=== PATIENT | male | born 1940 | race African-American/Black ===

== ENCOUNTER 2025-01-27 11:38 | Inpatient (IN) | payer BC, MEDICAID ==
[~2025-01-27] VITALS: Ht 170.2 cm; Wt 81.6 kg
[2025-01-27 12:57] LABS: BASOPHILS % 0.2 % (0.0-2.0); EOSINOPHILS % 0.1 % (0.0-5.0); HEMATOCRIT. 42.3 % (42.0-52.0); HEMOGLOBIN. 13.8 g/dL (14.0-18.0); LYMPHOCYTES % 7.2 % (20.0-50.0); MEAN PLATELET VOLUME 10.1 fl (7.4-10.4); MONOCYTES % 8.7 % (2.0-8.0); NEUTROPHILS % 83.8 % (40.0-76.0); PLATELET 127 x1000/uL (130-400); RED BLOOD CELL COUNT 4.50 mill/uL (4.7-6.1); RED CELL DISTRIBUTION WIDTH 14.8 % (11.6-14.6)
[2025-01-27 13:05] LABS: CREATININE 1.6 mg/dL (0.6-1.3); UREA NITROGEN BLOOD 40 mg/dL (9-23)
[2025-01-27 13:07] LABS: ASPARTATE AMINOTRANSFERASE 66 IU/L (<34); BILIRUBIN DIRECT 0.4 mg/dL (<=3.0); BILIRUBIN TOTAL 1.2 mg/dL (0.1-1.0); PROTEIN TOTAL 7.5 g/dL (6.0-8.3)
[2025-01-27 13:21] LABS: TROPONIN I HIGH SENSITIVITY 7028 ng/L (3.0-53)
[2025-01-27] MEDS: ACETAMINOPHEN 1000MG/100ML 100 ML IV ONE (14:06)
[2025-01-27] MEDS ORDERED: SODIUM CHLORIDE 0.45% 1,000 ML IV SCH (14:45)
[2025-01-27] MEDS: ASPIRIN 81MG TABLET PO SCH (15:08)
[2025-01-27] MEDS: ENOXAPARIN 80MG/0.8ML SYR SUBCUT SCH (15:08)
[2025-01-27] MEDS ORDERED: ACETAMINOPHEN 325MG TABLET PO PRN (15:30)
[2025-01-27] MEDS ORDERED: MAGNESIUM/ALUMINUM HYDROXIDE/SIMETHICONE 30ML UDC PO PRN (15:30)
[2025-01-27] MEDS ORDERED: CLONIDINE 0.1MG TABLET PO PRN (15:30)
[2025-01-27] MEDS ORDERED: ONDANSETRON HCL 4MG/2ML INJ IV PRN (15:30)
[2025-01-27 16:00] VITALS: BP 97/65; PULSE 92; RESP 20; TEMP 36.8; TEMP 36.8072; O2SAT 94
[2025-01-27] MEDS ORDERED: ALBUMIN HUMAN 25GM/100ML (25%) IV STA (17:26)
[2025-01-27 18:00] VITALS: BP 110/70; PULSE 79; RESP 25; O2SAT 96
[2025-01-27] MEDS: ALBUMIN HUMAN 25GM/100ML (25%) IV SCH (18:11)
[2025-01-27] MEDS: DEXTROSE 5% WATER 1,000 ML IV SCH (19:04)
[2025-01-27 20:00] VITALS: BP 108/63; PULSE 91; RESP 20; TEMP 36.7; O2SAT 98
[2025-01-27] MEDS ORDERED: IPRATROPIUM/ALBUTEROL 0.5-3(2.5)MG/3ML NEB HHN PRN (21:00)
[2025-01-27] MEDS: ATORVASTATIN CALCIUM 40MG TABLET PO SCH (21:00)
[2025-01-27 22:00] VITALS: BP 115/73; PULSE 97; RESP 29; O2SAT 95
[2025-01-27] MEDS: VANCOMYCIN 1.5GM PMX (XELLIA) 300 ML IV SCH (23:13)
[2025-01-27] MEDS: PIPERACILLIN/TAZO 3.375G/50ML 50 ML IV SCH (23:13)
[2025-01-28] VITALS (16 sets, daily range): BP systolic 99–123; BP diastolic 64–79; PULSE 89–122; RESP 19–33; TEMP 36.3–38.1; O2SAT 95–98
[2025-01-28 00:39] LABS: TROPONIN I HIGH SENSITIVITY 7160 ng/L (3.0-53)
[2025-01-28] MEDS: IPRATROPIUM/ALBUTEROL 0.5-3(2.5)MG/3ML NEB HHN SCH (02:49)
[2025-01-28 06:32] LABS: CREATININE 1.6 mg/dL (0.6-1.3)
[2025-01-28 06:33] LABS: HEMATOCRIT. 34.8 % (42.0-52.0); HEMOGLOBIN. 11.4 g/dL (14.0-18.0); MEAN PLATELET VOLUME 9.9 fl (7.4-10.4); PLATELET 105 x1000/uL (130-400); RED BLOOD CELL COUNT 3.75 mill/uL (4.7-6.1); RED CELL DISTRIBUTION WIDTH 14.6 % (11.6-14.6); UREA NITROGEN BLOOD 45.0 mg/dL (9-23)
[2025-01-28 07:45] LABS: INR 1.3
[2025-01-28 07:49] LABS: TROPONIN I HIGH SENSITIVITY 8157.0 ng/L (3.0-53)
[2025-01-28] MEDS: ENOXAPARIN 80MG/0.8ML SYR SUBCUT SCH (11:02)
[2025-01-28] MEDS: DEXTROSE 5% WATER 1,000 ML IV SCH (11:04)
[2025-01-28 15:45] LABS: GLUCOSE URINE NEGATIVE (NEGATIVE); KETONES URINE 1+ (NEGATIVE); LEUKOCYTE ESTERASE URINE NEGATIVE (NEGATIVE); NITRITE URINE POSITIVE (NEGATIVE); OCCULT BLOOD URINE NEGATIVE (NEGATIVE); PH URINE 5.5 (4.5-8.0); PROTEIN URINE 1+ (NEGATIVE); SPECIFIC GRAVITY URINE 1.038 (1.005-1.030); UROBILINOGEN URINE 1.0 E.U./dL (0.2-1.0)
[2025-01-28] MEDS ORDERED: DEXT 5% WATER + KCL 40MEQ/L 1,000 ML IV ONE (15:45)
[2025-01-28] MEDS ORDERED: NACL IV SCH (15:45)
[2025-01-28] MEDS ORDERED: DEXT IV SCH (15:45)
[2025-01-28] MEDS ORDERED: POTASSIUM CHLORIDE IV SCH (15:45)
[2025-01-28 15:54] LABS: *AMPHETAMINES SCREEN URINE NEGATIVE (NEGATIVE); *BARBITURATES SCREEN URINE NEGATIVE (NEGATIVE); *BENZODIAZEPINES SCREEN URINE NEGATIVE (NEGATIVE); *COCAINE SCREEN URINE NEGATIVE (NEGATIVE); CREATININE URINE RANDOM 196.6 mg/dL
[2025-01-28 15:55] LABS: CANNABINOID URINE SCREEN NEGATIVE (NEGATIVE); ECSTASY MDMA SCREEN URINE NEGATIVE (NEGATIVE); METHADONE URINE SCREEN NEGATIVE (NEGATIVE); OPIATES URINE SCREEN NEGATIVE (NEGATIVE); OSMOLALITY URINE 1101 mOsm/kg (500-850); PHENCYCLIDINE URINE SCREEN NEGATIVE (NEGATIVE); SODIUM URINE RANDOM < 10 mEq/L
[2025-01-28 16:05] LABS: UREA NITROGEN URINE RANDOM 1830 mg/dL
[2025-01-28 16:20] LABS: CLARITY URINE HAZY (CLEAR); COLOR URINE YELLOW (YELLOW)
[2025-01-28 16:21] LABS: WBC URINE 0-2 /hpf (0-2)
[2025-01-28 16:22] LABS: AMORPHOUS SEDIMENT URINE 1+ /lpf; BACTERIA URINE 1+; MUCUS URINE 1+ /lpf (NONE/TRACE); RBC URINE NONE SEEN /hpf (0-2); SQUAMOUS EPITHELIAL CELL URINE 1+ /lpf (RARE/1+)
[2025-01-28] MEDS ORDERED: LISI20TA31 PO (17:38)
[2025-01-28] MEDS ORDERED: AMLO-905 PO (17:38)
[2025-01-28] MEDS ORDERED: HYDR12.54 PO (17:38)
[2025-01-28] MEDS ORDERED: GABA-1180 MT (17:38)
[2025-01-28] MEDS ORDERED: LOVA20TA2 PO (17:38)
[2025-01-28] MEDS: WATER IV ONE (17:45)
[2025-01-28] MEDS: DEXTROSE 5% IV ONE (17:45)
[2025-01-28] MEDS: POTASSIUM CHLORIDE IV ONE (17:45)
[2025-01-28] MEDS ORDERED: HYDROCODONE/ACETAMINOPHEN 5/325MG TABLET PO PRN (21:00)
[2025-01-28] MEDS: VANCOMYCIN 750MG PREMIX 150 ML IV SCH (22:02)
[2025-01-28] MEDS: HYDROCODONE/ACETAMINOPHEN 10/325MG TABLET PO PRN (22:03)
[2025-01-29] VITALS (14 sets, daily range): BP systolic 87–110; BP diastolic 50–80; PULSE 90–103; RESP 15–32; TEMP 36.3–37.5; O2SAT 94–98
[2025-01-29 06:57] LABS: UREA NITROGEN BLOOD 56 mg/dL (9-23)
[2025-01-29 06:59] LABS: HEMATOCRIT. 30.3 % (42.0-52.0); HEMOGLOBIN. 10.0 g/dL (14.0-18.0); MEAN PLATELET VOLUME 10.6 fl (7.4-10.4); PHOSPHORUS 3.5 mg/dL (2.5-4.9); PLATELET 100 x1000/uL (130-400); RED BLOOD CELL COUNT 3.27 mill/uL (4.7-6.1); RED CELL DISTRIBUTION WIDTH 15.1 % (11.6-14.6)
[2025-01-29 07:00] LABS: CREATININE 2.6 mg/dL (0.6-1.3)
[2025-01-29] MEDS: POLYETHYLENE GLYCOL 3350 (17GM) 1 DOSE PACK PO SCH (10:08)
[2025-01-29 10:49] LABS: CREATININE 2.7 mg/dL (0.6-1.3); UREA NITROGEN BLOOD 56.0 mg/dL (9-23)
[2025-01-29] MEDS ORDERED: GABA-529 MT (10:57)
[2025-01-29] MEDS ORDERED: PRED5DRO22 LEFTEYE (10:57)
[2025-01-29] MEDS: SODIUM CHLORIDE 0.9% 1,000 ML IV SCH (13:02)
[2025-01-29] MEDS: SODIUM CHLORIDE 0.9% 1,000 ML IV ONE (14:04)
[2025-01-29] MEDS: MIDODRINE HCL 5MG TABLET PO PRN (15:37)
[2025-01-29 15:44] LABS: LYMPHOCYTES % MANUAL 10.0 % (20.0-50.0); MONOCYTES % MANUAL 3.0 % (2.0-8.0); NEUTROPHILS % MANUAL 87.0 % (45.0-75.0); PLATELET ESTIMATE SLIGHTLY DECREASED
[2025-01-29 16:42] LABS: PLATELET 104 x1000/uL (130-400); RED BLOOD CELL COUNT 3.34 mill/uL (4.7-6.1); RED CELL DISTRIBUTION WIDTH 15.0 % (11.6-14.6)
[2025-01-29 16:54] LABS: LYMPHOCYTES % MANUAL 9.0 % (20.0-50.0); MONOCYTES % MANUAL 7.0 % (2.0-8.0); NEUTROPHILS % MANUAL 84.0 % (45.0-75.0); NUCLEATED RED BLOOD CELLS 3 /100 WBC; PLATELET ESTIMATE SLIGHTLY DECREASED
[2025-01-29] MEDS: ALBUMIN HUMAN 25GM/100ML (25%) IV SCH (17:37)
[2025-01-29 21:10] LABS: HEMATOCRIT. 29.0 % (42.0-52.0); HEMOGLOBIN. 9.5 g/dL (14.0-18.0); MEAN PLATELET VOLUME 10.9 fl (7.4-10.4); PLATELET 105 x1000/uL (130-400); RED BLOOD CELL COUNT 3.12 mill/uL (4.7-6.1); RED CELL DISTRIBUTION WIDTH 15.3 % (11.6-14.6)
[2025-01-29 21:20] LABS: CREATININE 3.3 mg/dL (0.6-1.3)
[2025-01-29 21:21] LABS: UREA NITROGEN BLOOD 67 mg/dL (9-23)
[2025-01-29 21:22] LABS: ASPARTATE AMINOTRANSFERASE 31 IU/L (<34)
[2025-01-29 21:23] LABS: BILIRUBIN TOTAL 0.9 mg/dL (0.1-1.0); PHOSPHORUS 4.3 mg/dL (2.5-4.9); PROTEIN TOTAL 5.9 g/dL (6.0-8.3)
[2025-01-29 21:25] LABS: TROPONIN I HIGH SENSITIVITY 6728 ng/L (3.0-53)
[2025-01-29 21:39] LABS: EOSINOPHILS % MANUAL 3.0 % (0.0-5.0); LYMPHOCYTES % MANUAL 23.0 % (20.0-50.0); MONOCYTES % MANUAL 14.0 % (2.0-8.0); NEUTROPHILS % MANUAL 60.0 % (45.0-75.0); NUCLEATED RED BLOOD CELLS 1 /100 WBC; PLATELET ESTIMATE DECREASED
[2025-01-29] MEDS: ACETAMINOPHEN 500MG TABLET PO SCH (23:46)
[2025-01-30] VITALS (16 sets, daily range): BP systolic 81–113; BP diastolic 57–83; PULSE 72–94; RESP 16–33; TEMP 36.2–37.3; O2SAT 93–100
[2025-01-30 06:49] LABS: HEMATOCRIT. 30.8 % (42.0-52.0); HEMOGLOBIN. 10.0 g/dL (14.0-18.0); MEAN PLATELET VOLUME 10.4 fl (7.4-10.4); PLATELET 107 x1000/uL (130-400); RED BLOOD CELL COUNT 3.20 mill/uL (4.7-6.1); RED CELL DISTRIBUTION WIDTH 15.9 % (11.6-14.6)
[2025-01-30 07:42] LABS: CREATININE 3.4 mg/dL (0.6-1.3)
[2025-01-30 07:43] LABS: UREA NITROGEN BLOOD 77 mg/dL (9-23)
[2025-01-30 07:45] LABS: PHOSPHORUS 4.4 mg/dL (2.5-4.9)
[2025-01-30] MEDS: ENOXAPARIN 80MG/0.8ML SYR SUBCUT SCH (09:00)
[2025-01-30] MEDS: SODIUM BICARBONATE 8.4% 50MEQ/50ML SYR IV NR (10:19)
[2025-01-30] MEDS: ENOXAPARIN 30MG/0.3ML SYR SUBCUT SCH (12:00)
[2025-01-30 15:36] LABS: BAND% 7.0 % (1.0-6.0); EOSINOPHILS % MANUAL 1.0 % (0.0-5.0); LYMPHOCYTES % MANUAL 17.0 % (20.0-50.0); MONOCYTES % MANUAL 8.0 % (2.0-8.0); NEUTROPHILS % MANUAL 67.0 % (45.0-75.0)
[2025-01-30 15:37] LABS: PLATELET ESTIMATE DECREASED
[2025-01-30 16:38] LABS: BG BASE EXCESS -3.5 mmol/L (-2.0-3.0); BG CARBOXYHEMOGLOBIN 0.8 % (0.5-1.5); BG DEOXYHEMOGLOBIN 3.5 % (0.0-5.0); BG FRACTION INSPIRED OXYGEN 21; BG HCO3 ACT 19.1 mmol/L (21.0-28.0); BG METHEMOGLOBIN 0.2 % (0.5-1.5); BG OXYGEN SATURATION 96.5 % (94.0-98.0); BG OXYHEMOGLOBIN 95.5 % (94.0-98.0); BG PCO2 26.6 mmHg (35.0-48.0); BG PH 7.475 (7.350-7.450); BG PO2 85.2 mmHg (83.0-108.0); BG SAMPLE SITE RIGHT RADIAL; BG TOTAL HEMOGLOBIN 9.6 g/dL (13.5-17.5); BG VENT MODE ROOM AIR
[2025-01-30] MEDS: CLOPIDOGREL 75MG TABLET PO SCH (17:41)
[2025-01-30] MEDS: FUROSEMIDE 40MG/4ML VIAL IVP NR ×2 (17:41→21:34)
[2025-01-30] MEDS: PIPERACILLIN/TAZO 3.375G/50ML IV SCH (21:34)
[2025-01-30 22:00] LABS: UREA NITROGEN BLOOD 87.0 mg/dL (9-23)
[2025-01-30 22:01] LABS: CREATININE 4.6 mg/dL (0.6-1.3)
[2025-01-31] VITALS (41 sets, daily range): BP systolic 79–117; BP diastolic 56–77; PULSE 81–99; RESP 18–39; TEMP 36.8–37.6; O2SAT 88–100
[2025-01-31 07:37] LABS: PLATELET 144 x1000/uL (130-400); RED BLOOD CELL COUNT 3.36 mill/uL (4.7-6.1); RED CELL DISTRIBUTION WIDTH 15.5 % (11.6-14.6)
[2025-01-31 08:00] LABS: UREA NITROGEN BLOOD 91 mg/dL (9-23)
[2025-01-31] MEDS: DIAZEPAM 5 MG/ML 2ML SYR IV NR (08:00)
[2025-01-31 08:02] LABS: PHOSPHORUS 7.0 mg/dL (2.5-4.9)
[2025-01-31 08:27] LABS: CREATININE 5.0 mg/dL (0.6-1.3)
[2025-01-31] MEDS ORDERED: NALOXONE HCL 0.4MG/ML VIAL IV PRN (12:30)
[2025-01-31] MEDS: HYDROCODONE/ACETAMINOPHEN 5/325MG TABLET PO PRN (13:18)
[2025-01-31] MEDS: MIDODRINE HCL 5MG TABLET PO PRN (14:00)
[2025-01-31] MEDS ORDERED: SODIUM CHLORIDE 0.9% 1,000 ML IV SCH (14:45)
[2025-01-31] MEDS: MORPHINE SULFATE 2 MG/ML INJ (NOT FOR IM USE) IV PRN (14:53)
[2025-01-31] MEDS ORDERED: CEFEPIME 1GM IN DEXT 5% 50ML IV SCH (16:45)
[2025-01-31] MEDS: FLUDROCORTISONE ACETATE 0.1MG TABLET PO SCH (18:33)
[2025-01-31] MEDS: CEFEPIME 1GM PREMIX 50ML IV SCH (18:33)
[2025-01-31] MEDS ORDERED: AMIODARONE 360MG/200ML 200 ML IV SCH (22:15)
[2025-01-31] MEDS: AMIODARONE 150MG/100ML D5W 100 ML IV SCH (22:32)
[2025-01-31] MEDS: AMIODARONE 360MG/200ML D5W PREMIX IV SCH (22:34)
[2025-02-01] VITALS (39 sets, daily range): BP systolic 76–145; BP diastolic 46–72; PULSE 70–100; RESP 16–33; TEMP 36.3–37.7; O2SAT 94–100
[2025-02-01 08:20] LABS: BASOPHILS % 0.3 % (0.0-2.0); EOSINOPHILS % 1.6 % (0.0-5.0); HEMATOCRIT. 28.5 % (42.0-52.0); HEMOGLOBIN. 9.5 g/dL (14.0-18.0); LYMPHOCYTES % 7.1 % (20.0-50.0); MEAN PLATELET VOLUME 10.2 fl (7.4-10.4); MONOCYTES % 10.6 % (2.0-8.0); NEUTROPHILS % 80.4 % (40.0-76.0); PLATELET 153 x1000/uL (130-400); RED BLOOD CELL COUNT 3.16 mill/uL (4.7-6.1); RED CELL DISTRIBUTION WIDTH 15.4 % (11.6-14.6)
[2025-02-01 08:40] LABS: ASPARTATE AMINOTRANSFERASE 54 IU/L (<34)
[2025-02-01 08:41] LABS: BILIRUBIN TOTAL 0.5 mg/dL (0.1-1.0); PHOSPHORUS 7.5 mg/dL (2.5-4.9)
[2025-02-01 08:42] LABS: PROTEIN TOTAL 6.3 g/dL (6.0-8.3)
[2025-02-01 09:35] LABS: CREATININE 6.1 mg/dL (0.6-1.3); UREA NITROGEN BLOOD 101 mg/dL (9-23)
[2025-02-01] MEDS: MIDODRINE HCL 5MG TABLET PO SCH (12:19)
[2025-02-01] MEDS: DOXYCYCLINE HYCLATE 100MG CAPSULE PO SCH (16:20)
[2025-02-01] MEDS: NOREPINEPHRINE 8MG/250ML PMX 250 ML IV PRN (18:15)
[2025-02-01] MEDS: ACETAMINOPHEN 325MG TABLET PO PRN (20:50)
[2025-02-01] MEDS: METOCLOPRAMIDE HCL 10MG/2ML VIAL IV PRN (23:18)
[2025-02-02] VITALS (102 sets, daily range): BP systolic 61–140; BP diastolic 14–101; PULSE 55–156; RESP 17–66; TEMP 36.50292–37.4; O2SAT 91–100
[2025-02-02 05:43] LABS: ASPARTATE AMINOTRANSFERASE 77 IU/L (<34); BILIRUBIN TOTAL 0.5 mg/dL (0.1-1.0); PROTEIN TOTAL 5.6 g/dL (6.0-8.3)
[2025-02-02 05:53] LABS: CREATININE 7.1 mg/dL (0.6-1.3); UREA NITROGEN BLOOD 123 mg/dL (9-23)
[2025-02-02 05:54] LABS: PHOSPHORUS 9.4 mg/dL (2.5-4.9); TROPONIN I HIGH SENSITIVITY 2830 ng/L (3.0-53)
[2025-02-02] MEDS: SODIUM CHLORIDE 0.9% (SEPSIS BOLUS) IV ONE (06:15)
[2025-02-02 06:23] LABS: BASOPHILS % 0.2 % (0.0-2.0); EOSINOPHILS % 2.3 % (0.0-5.0); HEMATOCRIT. 27.7 % (42.0-52.0); HEMOGLOBIN. 9.1 g/dL (14.0-18.0); LYMPHOCYTES % 8.5 % (20.0-50.0); MEAN PLATELET VOLUME 10.5 fl (7.4-10.4); MONOCYTES % 8.8 % (2.0-8.0); NEUTROPHILS % 80.2 % (40.0-76.0); PLATELET 188 x1000/uL (130-400); RED BLOOD CELL COUNT 3.02 mill/uL (4.7-6.1); RED CELL DISTRIBUTION WIDTH 15.6 % (11.6-14.6)
[2025-02-02] MEDS ORDERED: LIDOCAINE HCL 1% 10 MG/ML 10ML VIAL ONE (09:22)
[2025-02-02] MEDS ORDERED: AMIODARONE HCL 900 MG in DEXT 5% WATER 482 ML IV SCH (12:30)
[2025-02-02] MEDS ORDERED: AMIODARONE HCL 150 MG in DEXT 5% WATER 100 ML IV ONE (12:30)
[2025-02-02 12:43] LABS: HEPATITIS A AB IGM NEGATIVE (Negative)
[2025-02-02 12:44] LABS: HEPATITIS B CORE AB IGM NEGATIVE (Negative); HEPATITIS C AB NON REACTIVE (Neg) (Negative)
[2025-02-02] MEDS: AMIODARONE 150MG/100ML PREMIX IV NR (12:58)
[2025-02-02 14:06] LABS: HEMATOCRIT. 26.3 % (42.0-52.0); HEMOGLOBIN. 8.4 g/dL (14.0-18.0); MEAN PLATELET VOLUME 10.5 fl (7.4-10.4); PLATELET 179 x1000/uL (130-400); RED BLOOD CELL COUNT 2.82 mill/uL (4.7-6.1); RED CELL DISTRIBUTION WIDTH 15.8 % (11.6-14.6)
[2025-02-02 14:23] LABS: UREA NITROGEN BLOOD 76 mg/dL (9-23)
[2025-02-02 14:26] LABS: CREATININE 4.8 mg/dL (0.6-1.3)
[2025-02-02 14:27] LABS: BAND% 11.0 % (1.0-6.0); LYMPHOCYTES % MANUAL 18.0 % (20.0-50.0); MONOCYTES % MANUAL 4.0 % (2.0-8.0); NEUTROPHILS % MANUAL 67.0 % (45.0-75.0)
[2025-02-02 14:28] LABS: PHOSPHORUS 8.5 mg/dL (2.5-4.9); PLATELET ESTIMATE NORMAL
[2025-02-02] MEDS: PROPOFOL 10MG/ML 100ML 100 ML IV PRN (14:58)
[2025-02-02] MEDS: PHENYLEPHRINE 50MG/250ML PMX 250 ML IV PRN (14:59)
[2025-02-02] MEDS: AMIODARONE 360MG/200ML D5W PREMIX IV SCH (15:02)
[2025-02-02] MEDS: CALCIUM ACETATE 667MG CAPSULE PO SCH ×2 (15:08→17:20)
[2025-02-02 15:48] LABS: BG BASE EXCESS -5.8 mmol/L (-2.0-3.0); BG CARBOXYHEMOGLOBIN 0.3 % (0.5-1.5); BG DEOXYHEMOGLOBIN 0.4 % (0.0-5.0); BG FRACTION INSPIRED OXYGEN 100; BG HCO3 ACT 18.1 mmol/L (21.0-28.0); BG METHEMOGLOBIN 0.1 % (0.5-1.5); BG OXYGEN SATURATION 99.6 % (94.0-98.0); BG OXYHEMOGLOBIN 99.2 % (94.0-98.0); BG PCO2 30.4 mmHg (35.0-48.0); BG PEEP (cmH2O) 5.0 cmH2O; BG PH 7.393 (7.350-7.450); BG PO2 287.7 mmHg (83.0-108.0); BG SAMPLE SITE RIGHT BRACHIAL; BG TIDAL VOLUME(mL) 400.0 mL; BG TOTAL HEMOGLOBIN 10.9 g/dL (13.5-17.5); BG VENT MODE VENT - AC; BG VENT RATE 22.0 set
[2025-02-02] MEDS: GABAPENTIN 100MG CAPSULE PO SCH (20:54)
[2025-02-03] VITALS (40 sets, daily range): BP systolic 58–167; BP diastolic 15–141; PULSE 50–109; RESP 21–55; TEMP 37.3; O2SAT 68–100
[2025-02-03 02:43] LABS: BG BASE EXCESS -6.4 mmol/L (-2.0-3.0); BG CARBOXYHEMOGLOBIN 0.8 % (0.5-1.5); BG DEOXYHEMOGLOBIN 21.4 % (0.0-5.0); BG FRACTION INSPIRED OXYGEN 40; BG HCO3 ACT 16.7 mmol/L (21.0-28.0); BG METHEMOGLOBIN 0.0 % (0.5-1.5); BG OXYGEN SATURATION 78.4 % (94.0-98.0); BG OXYHEMOGLOBIN 77.8 % (94.0-98.0); BG PCO2 25.6 mmHg (35.0-48.0); BG PEEP (cmH2O) 5.0 cmH2O; BG PH 7.433 (7.350-7.450); BG PO2 46.0 mmHg (83.0-108.0); BG SAMPLE SITE RIGHT RADIAL; BG TIDAL VOLUME(mL) 400.0 mL; BG TOTAL HEMOGLOBIN 9.6 g/dL (13.5-17.5); BG VENT MODE VENT - AC; BG VENT RATE 22.0 set
[2025-02-03] MEDS: IPRATROPIUM/ALBUTEROL 0.5-3(2.5)MG/3ML NEB HHN SCH ×2 (02:54→03:38)
[2025-02-03] MEDS ORDERED: FENTANYL CITRATE/PF 2,500 MCG in SODIUM CHLORIDE 0.9% 200 ML IV PRN (03:00)
[2025-02-03] MEDS: DOPAMINE 400MG/250ML PREMIX 250 ML IV PRN (03:12)
[2025-02-03 05:23] LABS: BASOPHILS % 0.1 % (0.0-2.0); EOSINOPHILS % 0.1 % (0.0-5.0); HEMATOCRIT. 28.9 % (42.0-52.0); HEMOGLOBIN. 9.3 g/dL (14.0-18.0); LYMPHOCYTES % 9.2 % (20.0-50.0); MEAN PLATELET VOLUME 10.2 fl (7.4-10.4); MONOCYTES % 8.9 % (2.0-8.0); NEUTROPHILS % 81.7 % (40.0-76.0); PLATELET 247 x1000/uL (130-400); RED BLOOD CELL COUNT 3.10 mill/uL (4.7-6.1); RED CELL DISTRIBUTION WIDTH 15.7 % (11.6-14.6)
[2025-02-03 05:45] LABS: TRIGLYCERIDE 111 mg/dL (0-150); UREA NITROGEN BLOOD 81 mg/dL (9-23)
[2025-02-03 05:46] LABS: ETHANOL BLOOD < 10 mg/dL (<10)
[2025-02-03 05:47] LABS: BILIRUBIN DIRECT 0.5 mg/dL (<=3.0); BILIRUBIN TOTAL 0.8 mg/dL (0.1-1.0)
[2025-02-03 05:48] LABS: PROTEIN TOTAL 6.2 g/dL (6.0-8.3)
[2025-02-03 05:49] LABS: CREATININE 6.0 mg/dL (0.6-1.3)
[2025-02-03 05:52] LABS: BG BASE EXCESS -9.7 mmol/L (-2.0-3.0); BG CARBOXYHEMOGLOBIN 0.9 % (0.5-1.5); BG DEOXYHEMOGLOBIN 24.4 % (0.0-5.0); BG FRACTION INSPIRED OXYGEN 100; BG HCO3 ACT 15.5 mmol/L (21.0-28.0); BG METHEMOGLOBIN 0.0 % (0.5-1.5); BG OXYGEN SATURATION 75.4 % (94.0-98.0); BG OXYHEMOGLOBIN 74.7 % (94.0-98.0); BG PCO2 31.4 mmHg (35.0-48.0); BG PEEP (cmH2O) 5.0 cmH2O; BG PH 7.311 (7.350-7.450); BG PO2 48.3 mmHg (83.0-108.0); BG SAMPLE SITE RIGHT RADIAL; BG TIDAL VOLUME(mL) 400.0 mL; BG TOTAL HEMOGLOBIN 10.6 g/dL (13.5-17.5); BG VENT MODE VENT - AC; BG VENT RATE 22.0 set
[2025-02-03 06:45] LABS: ASPARTATE AMINOTRANSFERASE 1878 IU/L (<34)
[2025-02-03 06:56] LABS: INR 1.3
[2025-02-03] MEDS ORDERED: PANTOPRAZOLE SODIUM 40 MG/VIAL IV SCH (09:00)
[2025-02-03] MEDS ORDERED: VANCOMYCIN 750MG PMX (XELLIA) 150 ML IV SCH (10:00)
== END 2025-02-03 06:36 | DRG 871 ==
LOC: ER 12:44 → EDBEDREQTM 13:57 → EDBEDREQ 13:57 → EDBEDREQSVC 13:57 → 5EST 14:14 → EDBEDREQTM 14:31 → EDBEDREQ 14:31 → ENRESERV 14:57 → CVICU 02-01 11:26
PROVIDERS: ADMIT Family Medicine Adult Medicine; ATTEND Family Medicine Adult Medicine
PROC: 05HM33Z Insertion of Infusion Device into Right Internal Jugular Vein, Percutaneous Approach (ICD-10-PCS; principal; 2025-02-02)
PROC: B543ZZA Ultrasonography of Right Jugular Veins, Guidance (ICD-10-PCS; 2025-02-02)
PROC: 5A1935Z Respiratory Ventilation, Less than 24 Consecutive Hours (ICD-10-PCS; 2025-02-02)
PROC: 0BH17EZ Insertion of Endotracheal Airway into Trachea, Via Natural or Artificial Opening (ICD-10-PCS; 2025-02-02)
PROC: 5A1D70Z Performance of Urinary Filtration, Intermittent, Less than 6 Hours Per Day (ICD-10-PCS; 2025-02-02)
PROC: 5A12012 Performance of Cardiac Output, Single, Manual (ICD-10-PCS; 2025-02-03)
DX: A41.9 Sepsis, unspecified organism (principal); G92.8 Other toxic encephalopathy; I21.4 Non-ST elevation (NSTEMI) myocardial infarction; I50.23 Acute on chronic systolic (congestive) heart failure; J96.01 Acute respiratory failure with hypoxia; E87.0 Hyperosmolality and hypernatremia; N17.9 Acute kidney failure, unspecified; J98.11 Atelectasis; G91.9 Hydrocephalus, unspecified; E87.20 Acidosis, unspecified; I13.0 Hypertensive heart and chronic kidney disease with heart failure and stage 1 through stage 4 chronic kidney disease, or unspecified chronic kidney disease; I47.20 Ventricular tachycardia, unspecified; I69.354 Hemiplegia and hemiparesis following cerebral infarction affecting left non-dominant side; I46.9 Cardiac arrest, cause unspecified; I46.2 Cardiac arrest due to underlying cardiac condition; I49.01 Ventricular fibrillation; M48.02 Spinal stenosis, cervical region; N18.9 Chronic kidney disease, unspecified; D64.9 Anemia, unspecified; E87.6 Hypokalemia; L89.150 Pressure ulcer of sacral region, unstageable; M48.061 Spinal stenosis, lumbar region without neurogenic claudication; L89.120 Pressure ulcer of left upper back, unstageable; G89.29 Other chronic pain; M50.30 Other cervical disc degeneration, unspecified cervical region; I71.9 Aortic aneurysm of unspecified site, without rupture; G51.0 Bell's palsy; Z79.82 Long term (current) use of aspirin; I25.2 Old myocardial infarction; Z78.1 Physical restraint status; Z79.02 Long term (current) use of antithrombotics/antiplatelets; Z98.1 Arthrodesis status
CPT/HCPCS: 31500; 31720; 36415; 36556; 36600; 71045; 72141; 72146; 72148; 76770; 77001; 80048; 80053; 80076; 80202; 80305; 80320; 81003; 82310; 82330; 82375; 82550; 82570; 82805; 82962; 83605; 83735; 83930; 83935; 84100; 84145; 84295; 84300; 84478; 84484; 84540; 85014; 85018; 85025; 85027; 86705; 86709; 87070; 87340; 90935; 92950; 93005; 93306; 93970; 94002; 94003; 94070; 94640; 94664; 94760; 96365; 98960; 99285; A4606; C1752; J0282; J0692; J1265; J1650; J1938; J2003; J2270; J2312; J2371; J2543; J2704; J2765; J3373; J3480; J3490; J7070; P9047; G0480; J0131